=== PATIENT | female | born 1975 | race Caucasian/White ===

== ENCOUNTER → 2017-05-30 | Emergency (ER) | payer OTHER ==
[~2017-05-30] VITALS: Ht 162.6 cm; Wt 59.0 kg
== END | disposition home or self-care (01) ==
LOC: ER 11:38
DX: K29.70 Gastritis, unspecified, without bleeding (principal)

== ENCOUNTER 2018-11-26 09:49 | Outpatient (CLI) | payer OTHER | END 2018-11-26 16:11 | disposition home or self-care (01) | LOC: MRI 09:49 | DX: D25.1 Intramural leiomyoma of uterus (principal) | CPT/HCPCS: 72197 ==

== ENCOUNTER 2018-12-01 09:27 | Day surgery (SDC) | payer OTHER | END 2018-12-01 13:30 | disposition home or self-care (01) | LOC: AMB-ENDOS 09:27 | DX: D12.5 Benign neoplasm of sigmoid colon (principal) ==

== ENCOUNTER 2023-07-10 09:15 | Outpatient (CLI) | payer OTHER | END 2023-07-10 09:25 | disposition home or self-care (01) | LOC: RAD 09:15 | PROVIDERS: ATTEND Orthopaedic Surgery | DX: M25.561 Pain in right knee (principal) ==

== ENCOUNTER 2023-07-10 12:00 | Outpatient (CLI) | payer OTHER ==
[2023-07-10 13:09] LABS: HEMATOCRIT 39.3 % (36.0-45.00); HEMOGLOBIN 13.8 g/dL (12.0-15.00); MEAN CELL VOLUME 99.6 fL (80.00-100.00); MEAN CORPUSCULAR HEMOGLOBIN 34.8 pg (27.00-32.0); PLATELET COUNT 256 K/uL (150-450); RED BLOOD COUNT 3.95 M/uL (4.00-6.00); RED CELL DISTRIBUTION WIDTH 12.9 % (11.5-14.5)
[2023-07-10 13:16] LABS: ERYTHROCYTE SEDIMENTATION RATE 14 mm/hr
[2023-07-10 13:33] LABS: URIC ACID 3.2 mg/dL (2.5-7.5)
[2023-07-10 13:41] LABS: C-REACTIVE PROTEIN 0.97 MG/DL (0.00-0.29)
== END 2023-07-10 12:01 | disposition home or self-care (01) ==
LOC: LAB 12:00
PROVIDERS: ATTEND Orthopaedic Surgery
DX: E55.9 Vitamin D deficiency, unspecified (principal); M85.9 Disorder of bone density and structure, unspecified; D64.9 Anemia, unspecified